=== PATIENT | male | born 1955 | race Asian ===

== ENCOUNTER 2025-07-20 05:26 | Emergency (ER) | payer OTHER, MEDICAID ==
[~2025-07-20] VITALS: Ht 182.9 cm; Wt 95.0 kg
[~2025-07-20 05:26] MED LIST: HYDR-4009 MT
[2025-07-20 05:30] VITALS: O2SAT 99
[2025-07-20] MEDS: SODIUM CHLORIDE 0.9% 1,000 ML IV ONE (06:24)
[2025-07-20 06:25] LABS: BASOPHILS % 0.3 % (0.0-2.0); EOSINOPHILS % 1.0 % (0.0-5.0); HEMATOCRIT. 37.0 % (42.0-52.0); HEMOGLOBIN. 12.6 g/dL (14.0-18.0); LYMPHOCYTES % 12.7 % (20.0-50.0); MEAN PLATELET VOLUME 6.7 fl (7.4-10.4); MONOCYTES % 6.0 % (2.0-8.0); NEUTROPHILS % 80.0 % (40.0-76.0); PLATELET 298 x1000/uL (130-400); RED BLOOD CELL COUNT 4.05 mill/uL (4.7-6.1); RED CELL DISTRIBUTION WIDTH 12.9 % (11.6-14.6)
[2025-07-20 06:30] LABS: CREATININE 0.8 mg/dL (0.6-1.3)
[2025-07-20 06:31] LABS: UREA NITROGEN BLOOD 14 mg/dL (9-23)
[2025-07-20 06:32] LABS: ASPARTATE AMINOTRANSFERASE 19 IU/L (<34)
[2025-07-20 06:33] LABS: BILIRUBIN DIRECT 0.4 mg/dL (<=3.0); BILIRUBIN TOTAL 0.8 mg/dL (0.1-1.0); PROTEIN TOTAL 6.4 g/dL (6.0-8.3)
[2025-07-20] MEDS ORDERED: IMOD MT (07:12)
[2025-07-20 07:50] VITALS: BP 125/66; PULSE 71; RESP 14; TEMP 37; O2SAT 100
== END 2025-07-20 08:36 | disposition home or self-care (01) ==
LOC: ER 06:04
DX: R19.7 Diarrhea, unspecified (principal); E78.00 Pure hypercholesterolemia, unspecified; I10 Essential (primary) hypertension; I46.9 Cardiac arrest, cause unspecified; I62.9 Nontraumatic intracranial hemorrhage, unspecified; Z74.01 Bed confinement status
CPT/HCPCS: 99284; 96360; 80076; 80048; 83605; 85025; 36415; J7030

== ENCOUNTER 2025-09-10 10:11 | Emergency (ER) | payer OTHER, MEDICAID ==
[~2025-09-10] VITALS: Ht 170.2 cm; Wt 95.0 kg
[~2025-09-10 10:11] MED LIST changes: +IMOD MT
[2025-09-10 10:18] VITALS: TEMP 36.8; O2SAT 99
[2025-09-10] MEDS: ACETAMINOPHEN 325MG TABLET PO ONE (13:17)
[2025-09-10 13:26] VITALS: BP 140/91; PULSE 89; RESP 15; O2SAT 100
== END 2025-09-10 13:28 | disposition home or self-care (01) ==
LOC: ER 10:29
DX: S09.90XA Unspecified injury of head, initial encounter (principal); M54.2 Cervicalgia; E78.00 Pure hypercholesterolemia, unspecified; F03.90 Unspecified dementia, unspecified severity, without behavioral disturbance, psychotic disturbance, mood disturbance, and anxiety; I10 Essential (primary) hypertension; W01.10XA Fall on same level from slipping, tripping and stumbling with subsequent striking against unspecified object, initial encounter; Y93.89 Activity, other specified; Y92.89 Other specified places as the place of occurrence of the external cause; Y99.8 Other external cause status
CPT/HCPCS: 73030; 99284